=== PATIENT | male | born 1975 ===

== ENCOUNTER → 2019-10-04 | Outpatient (CLI) | payer OTHER ==
[~2019-10-04] VITALS: Ht 175.3 cm; Wt 97.1 kg
== END | disposition home or self-care (01) ==
LOC: OFIC 805 14:00
DX: R09.82 Postnasal drip (principal); R09.81 Nasal congestion; J35.1 Hypertrophy of tonsils; J32.8 Other chronic sinusitis; J37.0 Chronic laryngitis